=== PATIENT | female | born 1990 | race Caucasian/White ===

== ENCOUNTER 2023-10-03 08:59 | Day surgery (SDC) | payer BC ==
[~2023-10-03] VITALS: Ht 160 cm; Wt 99.8 kg
[~2023-10-03 08:59] MED LIST: CEFAZOLIN SOD 2 GM in D5W 50 ML IV ONE
[2023-10-03 09:35] LABS: HCG,QUAL RESULT NEGATIVE (NEGATIVE)
[2023-10-03] MEDS ORDERED: DEXAMETHASONE SOD PHOSPHATE 4 MG/ML VIAL ONE (10:50)
[2023-10-03 11:19] VITALS: O2SAT 97
[2023-10-03] MEDS ORDERED: MEPERIDINE HCL/PF 25 MG/ML DISP.SYRIN IVP PRN (11:30)
[2023-10-03] MEDS ORDERED: LR 1,000 ML IV SCH (11:30)
[2023-10-03] MEDS ORDERED: HYDROmorphone 1 MG/ML INJ. CARTRIDGE IVP PRN ×2 (11:30)
[2023-10-03] MEDS ORDERED: METOCLOPRAMIDE HCL 10 MG/2 ML VIAL IVP PRN (11:30)
[2023-10-03] MEDS: HYDROcodone/ACETAMIN 5-325 MG TAB (NORCO/ VICODIN) ONE (13:44)
[2023-10-03 13:58] VITALS: BP_SYST 113; PULSE 70; RESP 18; TEMP 97.6
== END 2023-10-03 14:50 | disposition home or self-care (01) ==
LOC: SDS 08:59 → SMU 09:01 → SDS 14:50
PROVIDERS: ATTEND Orthopaedic Surgery Sports Medicine
DX: M67.431 Ganglion, right wrist (principal); E66.9 Obesity, unspecified; Z68.39 Body mass index [BMI] 39.0-39.9, adult
CPT/HCPCS: 87081; 25111; 84703; J3490; J0690; J1100; J3465; J2405; J2704; J3010; J7060; J7120